=== PATIENT | female | born 1985 | race Caucasian/White ===

== ENCOUNTER 2019-06-22 18:19 | Emergency (ER) | payer OTHER ==
[~2019-06-22] VITALS: Ht 165.1 cm; Wt 127.0 kg
[2019-06-22 18:42] VITALS: BP 124/74
--- NOTE | 2019-06-22 19:15 | NUR ---
PT CAME TO ER C/O OF LOWER BACK PAIN SINCE THIS MORNING. PAIN LEVEL 8/10 SHARP SHOOTING PAIN THAT RADIATES TO BILATERAL LOWER EXTREMITIES. PER PT WHEN SHES RESTING HER BACK PAIN IS OKAY, BUT HAS TROUBLE WALKING DUE TO THE PAIN. PT DENIES TRAUMA OR INJURY. ALLERGY: ASPIRIN. MED HX: UTERINE CANCER 2015. SAFETY MEASURES IN PLACE. LICO CAIN AT BEDSIDE.
[2019-06-22] MEDS ORDERED: KETOROLAC 30 MG/ML VIAL IM ONE (19:25)
--- NOTE | 2019-06-22 19:40 | NUR ---
PT AT XRAY VIA WHEELCHAIR
[2019-06-22 20:32] VITALS: BP 124/74
--- NOTE | 2019-06-22 20:32 | NUR ---
Patient discharged with v/s stable. Written and verbal after care instructions given and explained.Educated pt to ice back or use heat and to stretch. Patient alert, oriented and verbalized understanding of instructions. Ambulatory with steady gait. All questions addressed prior to discharge. ID band removed. Patient advised to follow up with PMD. Rx of Tylenol was given. Patient educated on indication of medication including possible reaction and side effects. Opportunity to ask questions provided and answered.
== END 2019-06-22 20:32 | disposition home or self-care (01) ==
LOC: MED 18:19
DX: S39.012A Strain of muscle, fascia and tendon of lower back, initial encounter (principal); M48.061 Spinal stenosis, lumbar region without neurogenic claudication; Z85.42 Personal history of malignant neoplasm of other parts of uterus; Z98.890 Other specified postprocedural states; Z88.6 Allergy status to analgesic agent; X58.XXXA Exposure to other specified factors, initial encounter; Y92.89 Other specified places as the place of occurrence of the external cause; Y93.89 Activity, other specified; Y99.8 Other external cause status
CPT/HCPCS: 72100; 81025; 96372; 99283; J1885

== ENCOUNTER 2019-11-16 12:26 | Emergency (ER) | payer OTHER ==
[~2019-11-16] VITALS: Ht 165.1 cm; Wt 122.5 kg
[2019-11-16 12:31] VITALS: BP 131/74
--- NOTE | 2019-11-16 13:32 | NUR ---
ASSESSMENT COMPLETED AT THIS TIME. PATIENT SITTING UP IN CHAIR. NO DISTRESS NOTED. ASSESSMENT NOTE: BIB SELF REPORTED RIGHT WRIST PAIN FOR 3 DAYS. PATIENT STATES SHE DOES NOT REMEMBER ANY INJURY. FULL ROM, +CMS. REPORTS NO RESP SYMPTOMS. LUNGS CLEAR. NO GI SYMPTOMS REPORTED. NO NVD. ABD SOFT AND NON-TENDER. PATIENT AAO.
--- NOTE | 2019-11-16 14:46 | NUR ---
APPLIED WRIST BRACE TO RIGHT WRIST WITHOUT ANY ISSUES
[2019-11-16 15:06] VITALS: BP 131/74
--- NOTE | 2019-11-16 15:06 | NUR ---
Patient discharged with v/s stable. Written and verbal after care instructions given and explained. Patient alert, oriented and verbalized understanding of instructions. Ambulatory with steady gait. All questions addressed prior to discharge. ID band removed. Patient advised to follow up with PMD. Rx of BENGAY ARTHRITIS given. Patient educated on indication of medication including possible reaction and side effects. Opportunity to ask questions provided and answered.
--- NOTE | 2019-11-16 15:36 | NUR ---
Note indio in EDM - 11/16/19 at 1543 by MARK Patient discharged with v/s stable. Written and verbal after care instructions given and explained. Patient alert, oriented and verbalized understanding of instructions. Ambulatory with steady gait. All questions addressed prior to discharge. ID band removed. Patient advised to follow up with PMD. Rx of tamiflu/tylenol/motrin/claritin given. Patient educated on indication of medication including possible reaction and side effects. Opportunity to ask questions provided and answered.
== END 2019-11-16 15:06 | disposition home or self-care (01) ==
LOC: MED 12:26
DX: S63.501A Unspecified sprain of right wrist, initial encounter (principal); Z88.6 Allergy status to analgesic agent; Z85.9 Personal history of malignant neoplasm, unspecified; Z90.49 Acquired absence of other specified parts of digestive tract; X50.0XXA Overexertion from strenuous movement or load, initial encounter; Y93.89 Activity, other specified; Y92.89 Other specified places as the place of occurrence of the external cause; Y99.8 Other external cause status
CPT/HCPCS: 29260; 73110; 99283

== ENCOUNTER 2020-07-01 14:24 | Emergency (ER) | payer OTHER ==
[~2020-07-01] VITALS: Ht 165.1 cm; Wt 132.0 kg
[2020-07-01 14:26] VITALS: BP 156/96
--- NOTE | 2020-07-01 14:30 | NUR ---
PT C/O LOWER ABDOMINAL PAIN WITH CRAMPING SENSATION RADIATING TO MED LOWER BACK ACCOMPANIED HEAVY VAGIBAL BLEEDING WITH LARGE BLOOD CLOTS AND NAUSEA FOR 3 DAYS; PT STATES SHE HAD CONSISTENT VOMITING 2 DAYS AGO AND RESOVED SPONTANEOUSLY. ALSO C/O DYSURIA AND PRESSURE SENSATION WHILE VOIDING. NO CVAT BECCA. DENIES DIARRHEA; SKIN IS PINK/WARM/DRY; AAOX4 WITH EVEN AND STEADY GAIT; LUNGS CLEAR BL; HR EVEN AND REGULAR; PT DENIES ANY FEVER, CP, SOB, OR COUGH AT THIS TIME; PATIENT STATES PAIN OF 10/10 AT THIS TIME; VSS; PATIENT POSITIONED FOR COMFORT; HOB ELEVATED; BEDRAILS UP X1; BED DOWN. ER MD MADE AWARE OF PT STATUS.
--- NOTE | 2020-07-01 15:18 | NUR ---
Female Bread Dough Mixer accompanied female patient for Pelvic Exam.
[2020-07-01] MEDS ORDERED: MORPHINE SULFATE 4 MG/ML SYR IVP ONE (15:20)
[2020-07-01] MEDS ORDERED: ONDANSETRON 4 MG/2 ML VIAL IVP ONE (15:20)
[2020-07-01 15:45] LABS: BASOPHILS # (AUTO) 0.1 K/uL (0.00-0.22); BASOPHILS % (AUTO) 0.6 % (0.0-2.0); EOSINOPHILS # (AUTO) 0.1 K/uL (0-0.4); EOSINOPHILS % (AUTO) 1.3 % (0.0-4.0); HEMATOCRIT 39.8 % (36-48); HEMOGLOBIN 13.2 g/dL (12.0-16.0); LYMPHOCYTES # (AUTO) 2.5 K/uL (2.5-16.5); LYMPHOCYTES % (AUTO) 21.8 % (20.5-51.1); MEAN CORPUSCULAR HEMOGLOBIN 29 pg (27-31); MEAN CORPUSCULAR HGB CONC 33 g/dL (33-37); MEAN CORPUSCULAR VOLUME 86.7 fL (80-94); MONOCYTES # (AUTO) 0.7 K/uL (0.8-1.0); NEUTROPHILS % (AUTO) 70.3 % (42.2-75.2); PLATELET COUNT (AUTO) 413 K/uL (140-450); RED BLOOD CELL COUNT(AUTO) 4.59 MIL/uL (4.20-5.40); RED CELL DISTRIBUTION WIDTH 13.6 % (11.6-13.7); WHITE BLOOD COUNT (AUTO) 11.3 K/uL (4.8-10.8)
[2020-07-01 16:07] LABS: ALBUMIN 3.5 g/dL (3.4-5.0); CARBON DIOXIDE 24.4 mmol/L (21-32); CREATININE 0.8 mg/dL (0.6-1.3); FREE T4 (FREE THYROXINE) 1.12 ng/dL (0.76-1.46); POTASSIUM 3.4 mmol/L (3.5-5.1); THYROID STIMULATING HORMONE 0.79 uIU/mL (0.34-3.74); TOTAL BILIRUBIN 0.5 mg/dL (0.0-1.0)
[2020-07-01] MEDS ORDERED: medroxyPROGESTERone 10 MG TAB PO STA (17:42)
[2020-07-01 18:37] VITALS: BP 123/81
--- NOTE | 2020-07-01 18:37 | NUR ---
Patient discharged with v/s stable. Written and verbal after care instructions given and explained. Patient alert, oriented and verbalized understanding of instructions. Ambulatory with steady gait. All questions addressed prior to discharge. ID band removed. Patient advised to follow up with PMD. Rx of PORERA AND NAPROSYN given. Patient educated on indication of medication including possible reaction and side effects. Opportunity to ask questions provided and answered.
== END 2020-07-01 18:37 | disposition home or self-care (01) ==
LOC: MED 14:24
DX: N93.8 Other specified abnormal uterine and vaginal bleeding (principal); Z88.0 Allergy status to penicillin; Z85.9 Personal history of malignant neoplasm, unspecified
CPT/HCPCS: 36415; 76830; 80053; 81002; 81025; 84439; 84443; 85025; 85610; 85730; 86886; 86900; 86901; 96374; 96375; 99284; J2270; J2405; Q0092

== ENCOUNTER 2022-01-16 22:04 | Emergency (ER) | payer OTHER ==
[~2022-01-16] VITALS: Ht 165.1 cm; Wt 137.0 kg
[2022-01-16 22:16] VITALS: BP 148/99
--- NOTE | 2022-01-16 23:00 | NUR ---
PT C/O ANXIETY, PANIC ATTACK D/T INCREASE STRESS AT HOME.
[2022-01-16] MEDS: LORazepam 1 MG TAB PO ONE (23:14)
[2022-01-16] MEDS ORDERED: HYDR-1093 PO (23:45)
[2022-01-17 00:10] VITALS: BP 128/80
--- NOTE | 2022-01-17 00:10 | NUR ---
Patient discharged with v/s stable. Written and verbal after care instructions given and explained. Patient alert, oriented and verbalized understanding of instructions. Ambulatory with steady gait. All questions addressed prior to discharge. ID band removed. Patient advised to follow up with PMD. Rx of HYDROXYZINE given. Patient educated on indication of medication including possible reaction and side effects. Opportunity to ask questions provided and answered.
== END 2022-01-17 00:10 | disposition home or self-care (01) ==
LOC: MED 22:04
DX: F41.9 Anxiety disorder, unspecified (principal); F43.9 Reaction to severe stress, unspecified; E11.9 Type 2 diabetes mellitus without complications; I10 Essential (primary) hypertension; Z79.899 Other long term (current) drug therapy; Z88.8 Allergy status to other drugs, medicaments and biological substances
CPT/HCPCS: 81025; 99283

== ENCOUNTER 2022-09-16 08:05 | Emergency (ER) | payer OTHER ==
[~2022-09-16] VITALS: Ht 165.1 cm; Wt 131.5 kg
[~2022-09-16 08:05] MED LIST: HYDR-1093 PO
[2022-09-16 08:54] VITALS: BP 137/93
[2022-09-16] MEDS ORDERED: MUC600 PO (08:54)
[2022-09-16] MEDS ORDERED: MENT7.6L6 PO (08:54)
--- NOTE | 2022-09-16 09:00 | NUR ---
C/O HEADACHE, RUNNY NOSE, [id number], TOOK ADVIL AND DAYQUIL WITH MODERATE EFFECT ALLERGY: ASPIRIN PMH: ASTHMA, DM, HTN
--- NOTE | 2022-09-16 09:02 | NUR ---
Patient discharged with v/s stable. Written and verbal after care instructions VIRAL ILLNESS given and explained. Patient alert, oriented and verbalized understanding of instructions. Ambulatory with steady gait. All questions addressed prior to discharge. ID band removed. Patient advised to follow up with PMD. Rx of COUGH DROPS AND MUCINEX given. Patient educated on indication of medication including possible reaction and side effects. Opportunity to ask questions provided and answered.
== END 2022-09-16 09:02 | disposition home or self-care (01) ==
LOC: MED 08:05
DX: B34.9 Viral infection, unspecified (principal); Z20.822 Contact with and (suspected) exposure to COVID-19; H92.03 Otalgia, bilateral; R51.9 Headache, unspecified; R09.81 Nasal congestion; J45.909 Unspecified asthma, uncomplicated; E11.9 Type 2 diabetes mellitus without complications; I10 Essential (primary) hypertension; Z79.899 Other long term (current) drug therapy; Z88.6 Allergy status to analgesic agent
CPT/HCPCS: 99283

== ENCOUNTER 2022-09-23 05:44 | Emergency (ER) | payer OTHER ==
[~2022-09-23] VITALS: Ht 165.1 cm; Wt 132.0 kg
[~2022-09-23 05:44] MED LIST changes: +MENT7.6L6 PO; +MUC600 PO
[2022-09-23 06:00] VITALS: BP 136/89
--- NOTE | 2022-09-23 06:11 | NUR ---
PT AMBULATED TO BED #8
--- NOTE | 2022-09-23 06:14 | NUR ---
Patient being evaluated by physician at bedside.
[2022-09-23] MEDS ORDERED: TRAM-748 PO (06:20)
[2022-09-23] MEDS ORDERED: AMOX500C25 PO (06:20)
[2022-09-23] MEDS ORDERED: COROTSOL OT (06:20)
[2022-09-23 06:32] VITALS: BP 136/89
--- NOTE | 2022-09-23 06:32 | NUR ---
Patient discharged with v/s stable. Written and verbal after care instructions given and explained. Patient verbalized understanding. Ambulatory with steady gait. All questions addressed prior to discharge. Advised to follow up with PMD.
--- NOTE | 2022-09-23 06:39 | NUR ---
37YR OLD FEMALE BIB SELF C/O BECCA EAR PAIN X3DAYS. PAIN LEVEL 8/10. PT IS A&OX4. DENIES FEVER V/D. PT STATES ALSO BEING CONGESTED. RESP EVEN AND UNLABORED. HOB ELEVATED BED AT LOWEST POSITION ASA ASTHMA DM
--- NOTE | 2022-09-23 06:44 | NUR ---
The patient's care was reviewed and supervised by Leonora Campo RN.
== END 2022-09-23 06:32 | disposition home or self-care (01) ==
LOC: MED 05:44
DX: H66.93 Otitis media, unspecified, bilateral (principal); R05.9 Cough, unspecified; R09.81 Nasal congestion; I10 Essential (primary) hypertension; J45.909 Unspecified asthma, uncomplicated; E11.9 Type 2 diabetes mellitus without complications; Z79.4 Long term (current) use of insulin; Z79.899 Other long term (current) drug therapy
CPT/HCPCS: 99283

== ENCOUNTER 2022-10-03 14:44 | Emergency (ER) | payer OTHER ==
[~2022-10-03] VITALS: Ht 165.1 cm; Wt 132.0 kg
[~2022-10-03 14:44] MED LIST changes: +AMOX500C25 PO; +COROTSOL OT; +TRAM-748 PO
[2022-10-03] MEDS ORDERED: ACETAMINOPHEN 325 MG TAB PO ONE (15:10)
[2022-10-03] MEDS ORDERED: MORPHINE SULFATE 4 MG/ML SYR IM ONE (15:40)
[2022-10-03] MEDS ORDERED: ONDANSETRON 4 MG ODT PO ONE (15:40)
--- NOTE | 2022-10-03 15:54 | NUR ---
PT TO BED 8 VIA WC
--- NOTE | 2022-10-03 16:35 | NUR ---
37F BIBA from home with c/o bilateral foot pain since today. Pt reports metal object from tow truck dropped on to both feet. Pt reports constant, burning/throbbing/aching like, 9/10 pain to feet bilaterally, with pain radiating from left foot to left calf. Pt states she is unable to bear own weight, unable to ambulate due to pain. CMS and ROM intact on right foot, limited sensation and ROM to left foot upon assessment. No bruising or swelling noted.
--- NOTE | 2022-10-03 17:27 | NUR ---
Xray at bedside.
[2022-10-03] MEDS ORDERED: ACET500P13 PO (18:16)
--- NOTE | 2022-10-03 18:31 | NUR ---
stirrup and short leg posterior applied. kala wrap x 2. splint wrapped with kala wrap x 2. crutches given and pt returned safe demonstration.
[2022-10-03 18:42] VITALS: BP 131/79
--- NOTE | 2022-10-03 18:42 | NUR ---
Patient discharged with v/s stable. Written and verbal after care instructions given and explained. Patient verbalized understanding. Wheel Chair Assisted with to car. All questions addressed prior to discharge. Advised to follow up with PMD.
== END 2022-10-03 18:42 | disposition home or self-care (01) ==
LOC: MED 14:44
DX: S82.52XA Displaced fracture of medial malleolus of left tibia, initial encounter for closed fracture (principal); S99.921A Unspecified injury of right foot, initial encounter; E11.9 Type 2 diabetes mellitus without complications; J45.909 Unspecified asthma, uncomplicated; I10 Essential (primary) hypertension; Z79.4 Long term (current) use of insulin; Z79.899 Other long term (current) drug therapy; Z85.42 Personal history of malignant neoplasm of other parts of uterus; Z79.82 Long term (current) use of aspirin; X58.XXXA Exposure to other specified factors, initial encounter; Y93.89 Activity, other specified; Y92.89 Other specified places as the place of occurrence of the external cause; Y99.8 Other external cause status
CPT/HCPCS: 29515; 73610; 73630; 96372; 99284; J2270; Q0162

== ENCOUNTER 2023-10-02 15:21 | Emergency (ER) | payer OTHER ==
[~2023-10-02] VITALS: Ht 165.1 cm; Wt 127.7 kg
[~2023-10-02 15:21] MED LIST changes: +ACET500P13 PO
[2023-10-02 15:36] VITALS: BP 125/81; PULSE 76; RESP 19; TEMP 97.8; O2SAT 95
[2023-10-02 16:21] LABS: BASOPHILS # (AUTO) 0.1 K/uL (0.00-0.22); BASOPHILS % (AUTO) 0.7 % (0.0-2.0); EOSINOPHILS # (AUTO) 0.1 K/uL (0-0.4); EOSINOPHILS % (AUTO) 1.4 % (0.0-4.0); HEMATOCRIT 40.3 % (36-48); HEMOGLOBIN 13.7 g/dL (12.0-16.0); LYMPHOCYTES # (AUTO) 2.7 K/uL (2.5-16.5); LYMPHOCYTES % (AUTO) 27.1 % (20.5-51.1); MEAN CORPUSCULAR HEMOGLOBIN 29 pg (27-31); MEAN CORPUSCULAR HGB CONC 34 g/dL (33-37); MEAN CORPUSCULAR VOLUME 86.2 fL (80-94); MONOCYTES # (AUTO) 0.5 K/uL (0.8-1.0); MONOCYTES % (AUTO) 5.2 % (1.7-9.3); NEUTROPHILS # (AUTO) 6.6 K/uL (1.8-7.7); NEUTROPHILS % (AUTO) 65.6 % (42.2-75.2); PLATELET COUNT (AUTO) 420 K/uL (140-450); RED BLOOD CELL COUNT(AUTO) 4.67 MIL/uL (4.20-5.40); RED CELL DISTRIBUTION WIDTH 13.6 % (11.6-13.7)
[2023-10-02 16:39] LABS: ALBUMIN 3.9 g/dL (3.4-5.0); ANION GAP 14.2 (8-16); CALCIUM 9.1 mg/dL (8.5-10.1); CARBON DIOXIDE 28.5 mmol/L (21-32); CREATININE 0.8 mg/dL (0.6-1.3); POTASSIUM 3.7 mmol/L (3.5-5.1); TOTAL BILIRUBIN 0.6 mg/dL (0.0-1.0); TOTAL PROTEIN, SERUM 7.9 g/dL (6.4-8.2)
[2023-10-02] MEDS ORDERED: FAMOTIDINE 20 MG/2 ML VIAL IVP ONE (16:45)
[2023-10-02] MEDS ORDERED: ONDANSETRON 4 MG/2 ML VIAL IVP ONE (16:45)
[2023-10-02] MEDS ORDERED: NACL 0.9% 1,000 ML IV ONE (16:45)
[2023-10-02] MEDS ORDERED: KETOROLAC 30 MG/ML VIAL IVP ONE (16:50)
[2023-10-02 19:01] LABS: APPEARANCE,URINE CLEAR (CLEAR); BILIRUBIN,URINE NEGATIVE (NEGATIVE); BLOOD, URINE TRACE-I (NEGATIVE); COLOR,URINE YELLOW (YELLOW); LEUKOCYTE ESTERASE ,URINE NEGATIVE (NEGATIVE); NITRITE, URINE NEGATIVE (NEGATIVE); PROTEIN,URINE NEGATIVE (NEGATIVE); UGLUCOSE NEGATIVE (NEGATIVE)
[2023-10-02 19:26] LABS: BACTERIA,URINE FEW /HPF (None Seen); SQUAMOUS EPITHELIAL CELL,UR 0-3 (FEW) /LPF (0-3 (FEW)); WBC,URINE 0-5 /HPF (0-5)
[2023-10-02 19:35] VITALS: TEMP 97.9
[2023-10-02] MEDS ORDERED: LID5T TP (19:54)
[2023-10-02] MEDS ORDERED: ACET-10509 PO (19:54)
[2023-10-02] MEDS ORDERED: ONDA-188 SL (19:54)
[2023-10-02 20:10] VITALS: O2SAT 98
[2023-10-02 20:11] VITALS: BP 15/76; PULSE 76; RESP 19; O2SAT 98
== END 2023-10-02 20:11 | disposition home or self-care (01) ==
LOC: MED 15:21
DX: R11.2 Nausea with vomiting, unspecified (principal); R10.9 Unspecified abdominal pain; M54.50 Low back pain, unspecified; J45.909 Unspecified asthma, uncomplicated; E11.9 Type 2 diabetes mellitus without complications; I10 Essential (primary) hypertension; Z79.4 Long term (current) use of insulin; Z79.899 Other long term (current) drug therapy; Z79.82 Long term (current) use of aspirin
CPT/HCPCS: 36415; 74176; 80053; 81001; 81025; 83690; 84703; 85025; 96361; 96374; 96375; 99285; J1885; J2405; J3490; J7030

== ENCOUNTER 2023-10-22 16:12 | Emergency (ER) | payer OTHER ==
[~2023-10-22] VITALS: Ht 165.1 cm; Wt 129.7 kg
[~2023-10-22 16:12] MED LIST changes: +ACET-10509 PO; +LID5T TP; +ONDA-188 SL
[2023-10-22 16:27] VITALS: BP 138/79; PULSE 113; RESP 14; TEMP 100; O2SAT 94
[2023-10-22] MEDS ORDERED: ACETAMINOPHEN EXTRA STRENGTH 500 MG TAB PO ONE (16:35)
[2023-10-22] MEDS ORDERED: ONDANSETRON 4 MG ODT PO ONE (17:10)
[2023-10-22] MEDS ORDERED: ONDANSETRON 4 MG ODT ONE (17:10)
[2023-10-22 17:41] LABS: FLU B ANTIGEN NEGATIVE (NEGATIVE)
[2023-10-22 17:42] LABS: FLU A ANTIGEN POSITIVE (NEGATIVE)
[2023-10-22] MEDS ORDERED: ACET-10509 PO ×2 (17:50→18:01)
[2023-10-22] MEDS ORDERED: BPM/-9 PO ×2 (17:50→18:01)
[2023-10-22] MEDS ORDERED: TAM75 PO ×2 (17:50→18:01)
[2023-10-22] MEDS ORDERED: ONDA-188 SL ×2 (17:50→18:01)
== END 2023-10-22 18:02 | disposition home or self-care (01) ==
LOC: MED 16:12
DX: J10.1 Influenza due to other identified influenza virus with other respiratory manifestations (principal); Z20.822 Contact with and (suspected) exposure to COVID-19; J45.909 Unspecified asthma, uncomplicated; E11.9 Type 2 diabetes mellitus without complications; I10 Essential (primary) hypertension; Z79.899 Other long term (current) drug therapy; Z79.2 Long term (current) use of antibiotics; Z88.6 Allergy status to analgesic agent
CPT/HCPCS: 71045; 87426; 87804; 99284; Q0162

== ENCOUNTER 2023-10-24 10:23 | Emergency (ER) | payer OTHER ==
[~2023-10-24] VITALS: Ht 165.1 cm; Wt 128.8 kg
[~2023-10-24 10:23] MED LIST changes: +BPM/-9 PO; +TAM75 PO
[2023-10-24 10:26] VITALS: BP 138/75; PULSE 83; RESP 15; TEMP 97.6; O2SAT 99
[2023-10-24] MEDS ORDERED: ONDANSETRON 4 MG/2 ML VIAL IVP ONE (10:40)
[2023-10-24] MEDS ORDERED: NACL 0.9% 1,000 ML IV SCH (10:40)
[2023-10-24] MEDS ORDERED: KETOROLAC 30 MG/ML VIAL IVP ONE (10:40)
[2023-10-24 11:30] LABS: BASOPHILS % (AUTO) 0.4 % (0.0-2.0); EOSINOPHILS # (AUTO) 0.1 K/uL (0-0.4); EOSINOPHILS % (AUTO) 1.6 % (0.0-4.0); HEMATOCRIT 41.8 % (36-48); HEMOGLOBIN 14.6 g/dL (12.0-16.0); LYMPHOCYTES # (AUTO) 2.3 K/uL (2.5-16.5); LYMPHOCYTES % (AUTO) 50.8 % (20.5-51.1); MEAN CORPUSCULAR HEMOGLOBIN 30 pg (27-31); MEAN CORPUSCULAR HGB CONC 35 g/dL (33-37); MEAN CORPUSCULAR VOLUME 85.8 fL (80-94); MONOCYTES # (AUTO) 0.5 K/uL (0.8-1.0); MONOCYTES % (AUTO) 10.4 % (1.7-9.3); NEUTROPHILS # (AUTO) 1.7 K/uL (1.8-7.7); NEUTROPHILS % (AUTO) 36.8 % (42.2-75.2); PLATELET COUNT (AUTO) 320 K/uL (140-450); RED BLOOD CELL COUNT(AUTO) 4.87 MIL/uL (4.20-5.40); RED CELL DISTRIBUTION WIDTH 13.8 % (11.6-13.7); WHITE BLOOD COUNT (AUTO) 4.5 K/uL (4.8-10.8)
[2023-10-24 11:54] LABS: ANION GAP 14.3 (8-16); CARBON DIOXIDE 26.2 mmol/L (21-32); CREATININE 0.9 mg/dL (0.6-1.3); POTASSIUM 3.5 mmol/L (3.5-5.1)
[2023-10-24 11:58] LABS: ALBUMIN 3.4 g/dL (3.4-5.0); BILIRUBIN,DIRECT 0.1 mg/dL (0.0-0.3); TOTAL BILIRUBIN 0.6 mg/dL (0.0-1.0); TOTAL PROTEIN, SERUM 8.2 g/dL (6.4-8.2)
[2023-10-24] MEDS ORDERED: ONDA-188 PO (12:18)
== END 2023-10-24 12:36 | disposition home or self-care (01) ==
LOC: MED 10:23
DX: J10.1 Influenza due to other identified influenza virus with other respiratory manifestations (principal); R11.2 Nausea with vomiting, unspecified; J45.909 Unspecified asthma, uncomplicated; E11.9 Type 2 diabetes mellitus without complications; I10 Essential (primary) hypertension; Z79.82 Long term (current) use of aspirin; Z79.899 Other long term (current) drug therapy; Z79.4 Long term (current) use of insulin
CPT/HCPCS: 36415; 71045; 80048; 80076; 81025; 83690; 84703; 85025; 96361; 96374; 96375; 99284; J1885; J2405; J7030; Q0092

== ENCOUNTER 2024-04-10 19:57 | Emergency (ER) | payer OTHER ==
[~2024-04-10] VITALS: Ht 165.1 cm; Wt 119.3 kg
[~2024-04-10 19:57] MED LIST changes: +MENT7.6L13 PO; -MENT7.6L6 PO; +ONDA-188 PO
[2024-04-10 20:03] VITALS: BP 142/99; PULSE 61; RESP 16; TEMP 96.8; O2SAT 100
[2024-04-10] MEDS: NACL 0.9% 1,000 ML IV SCH (20:52)
[2024-04-10 20:53] LABS: BASOPHILS % (AUTO) 0.4 % (0.0-2.0); EOSINOPHILS # (AUTO) 0.2 K/uL (0-0.4); EOSINOPHILS % (AUTO) 1.6 % (0.0-4.0); HEMATOCRIT 38.6 % (36-48); HEMOGLOBIN 13.4 g/dL (12.0-16.0); LYMPHOCYTES # (AUTO) 2.3 K/uL (2.5-16.5); LYMPHOCYTES % (AUTO) 20.3 % (20.5-51.1); MEAN CORPUSCULAR HEMOGLOBIN 30 pg (27-31); MEAN CORPUSCULAR HGB CONC 35 g/dL (33-37); MEAN CORPUSCULAR VOLUME 87.2 fL (80-94); MONOCYTES # (AUTO) 0.6 K/uL (0.8-1.0); MONOCYTES % (AUTO) 5.4 % (1.7-9.3); NEUTROPHILS # (AUTO) 8.1 K/uL (1.8-7.7); NEUTROPHILS % (AUTO) 72.3 % (42.2-75.2); PLATELET COUNT (AUTO) 305 K/uL (140-450); RED BLOOD CELL COUNT(AUTO) 4.42 MIL/uL (4.20-5.40); RED CELL DISTRIBUTION WIDTH 14.9 % (11.6-13.7); WHITE BLOOD COUNT (AUTO) 11.3 K/uL (4.8-10.8)
[2024-04-10] MEDS: KETOROLAC 30 MG/ML VIAL IVP ONE (21:00)
[2024-04-10 21:01] LABS: ANION GAP 10.6 (8-16); CALCIUM 8.9 mg/dL (8.5-10.1); CARBON DIOXIDE 27.9 mmol/L (21-32); CREATININE 0.7 mg/dL (0.6-1.3); POTASSIUM 3.5 mmol/L (3.5-5.1)
[2024-04-10] MEDS: FAMOTIDINE 20 MG/2 ML VIAL IVP ONE (21:01)
[2024-04-10] MEDS: diphenhydrAMINE 50 MG/ML VIAL IVP ONE (21:01)
[2024-04-10 21:03] LABS: APPEARANCE,URINE CLEAR (CLEAR); BILIRUBIN,URINE 1+ (NEGATIVE); BLOOD, URINE TRACE-I (NEGATIVE); COLOR,URINE YELLOW (YELLOW); LEUKOCYTE ESTERASE ,URINE NEGATIVE (NEGATIVE); NITRITE, URINE NEGATIVE (NEGATIVE); PROTEIN,URINE NEGATIVE (NEGATIVE); UGLUCOSE NEGATIVE (NEGATIVE); UROBILINOGEN,URINE 0.2 EU/dL (0.2 - 1)
[2024-04-10] MEDS: METOCLOPRAMIDE 10 MG/2 ML INJ VIAL IVP ONE (21:03)
[2024-04-10 21:07] LABS: ALBUMIN 3.8 g/dL (3.4-5.0); BILIRUBIN,DIRECT 0.2 mg/dL (0.0-0.3); TOTAL PROTEIN, SERUM 7.3 g/dL (6.4-8.2)
[2024-04-10 21:09] LABS: ICTOTEST POSITIVE (NEGATIVE)
[2024-04-10 22:00] VITALS: BP 142/99; PULSE 61; RESP 16; TEMP 96.8; O2SAT 100
== END 2024-04-10 22:00 | disposition left against medical advice (07) ==
LOC: MED 19:57
DX: K35.80 Unspecified acute appendicitis (principal); J45.909 Unspecified asthma, uncomplicated; E11.9 Type 2 diabetes mellitus without complications; I10 Essential (primary) hypertension; Z79.82 Long term (current) use of aspirin; Z79.4 Long term (current) use of insulin; Z79.899 Other long term (current) drug therapy
CPT/HCPCS: 36415; 74176; 80048; 80076; 81003; 81025; 83690; 85025; 96361; 96374; 96375; 99285; J1200; J1885; J2765; J3490; J7030

== ENCOUNTER 2024-04-11 00:30 | Inpatient (IN) | payer OTHER ==
[2024-04-11] VITALS (8 sets, daily range): BP systolic 107–129; BP diastolic 67–84; PULSE 59–79; RESP 16–18; TEMP 97.1–98.1; O2SAT 95–100
[~2024-04-11] VITALS: Ht 165.1 cm; Wt 125.2 kg
[2024-04-11] MEDS ORDERED: cefTRIAXone 2,000 MG VIAL ONE (01:11)
[2024-04-11] MEDS: NACL 0.9% 1,000 ML IV ONE (01:15)
[2024-04-11] MEDS: cefTRIAXone 2,000 MG in DEXTROSE 5% 100 ML IV ONE (01:15)
[2024-04-11] MEDS: MORPHINE SULFATE 4 MG/ML SYR IVP ONE (01:33)
[2024-04-11] MEDS: ONDANSETRON 4 MG/2 ML VIAL IVP ONE (01:33)
[2024-04-11] MEDS: metroNIDAZOLE 500 MG/NS PREMIX 100 ML IV ONE (01:34)
[2024-04-11 01:37] LABS: BASOPHILS % (AUTO) 0.3 % (0.0-2.0); EOSINOPHILS # (AUTO) 0.1 K/uL (0-0.4); HEMATOCRIT 36.4 % (36-48); HEMOGLOBIN 12.6 g/dL (12.0-16.0); LYMPHOCYTES # (AUTO) 1.9 K/uL (2.5-16.5); LYMPHOCYTES % (AUTO) 18.1 % (20.5-51.1); MEAN CORPUSCULAR HEMOGLOBIN 30 pg (27-31); MEAN CORPUSCULAR HGB CONC 35 g/dL (33-37); MEAN CORPUSCULAR VOLUME 87.3 fL (80-94); MONOCYTES # (AUTO) 0.6 K/uL (0.8-1.0); NEUTROPHILS # (AUTO) 7.8 K/uL (1.8-7.7); NEUTROPHILS % (AUTO) 74.6 % (42.2-75.2); PLATELET COUNT (AUTO) 281 K/uL (140-450); RED BLOOD CELL COUNT(AUTO) 4.17 MIL/uL (4.20-5.40); RED CELL DISTRIBUTION WIDTH 14.6 % (11.6-13.7); WHITE BLOOD COUNT (AUTO) 10.4 K/uL (4.8-10.8)
[2024-04-11 01:52] LABS: INR 1.02 (0.8-1.2); PARTIAL THROMBOPLASTIN TIME 29.9 secs (22-35.6); PROTHROMBIN TIME 10.7 secs (10.8-13.4)
[2024-04-11 02:04] LABS: ANION GAP 11.9 (8-16); CALCIUM 8.8 mg/dL (8.5-10.1); CARBON DIOXIDE 25.5 mmol/L (21-32); CREATININE 0.7 mg/dL (0.6-1.3); POTASSIUM 3.4 mmol/L (3.5-5.1)
[2024-04-11] MEDS ORDERED: ACETAMINOPHEN 325 MG TAB PO PRN (04:25)
[2024-04-11] MEDS ORDERED: KCL 20 MEQ IN 100 mL PREMIX 200 ML IV PRN (04:25)
[2024-04-11] MEDS ORDERED: METOCLOPRAMIDE 10 MG/2 ML INJ VIAL IVP PRN (04:25)
[2024-04-11] MEDS ORDERED: MAGNESIUM OXIDE 400 MG TAB PO PRN (04:25)
[2024-04-11] MEDS ORDERED: MAG SULF 2000 MG/WATER PREMIX 50 ML IV PRN (04:25)
[2024-04-11] MEDS ORDERED: LORazepam 1 MG TAB PO PRN (04:25)
[2024-04-11] MEDS: DEXT 5% /NACL 0.9% 1,000 ML IV SCH (04:57)
[2024-04-11] MEDS: metroNIDAZOLE 500 MG/NS PREMIX 100 ML IV SCH (07:41)
[2024-04-11] MEDS: HYDROcodone/APAP 5/325 MG 1 TAB TAB PO PRN (08:12)
[2024-04-11] MEDS: fentaNYL citrate 0.05 MG/ML VIAL ONE (12:33)
[2024-04-11] MEDS: LIDOCAINE/EPI 1% 1:100000 20 ML VIAL INJ ONE (12:33)
[2024-04-11] MEDS: BUPIVACAINE-MPF 0.25% 30 ML VIAL INJ ONE (12:33)
[2024-04-11] MEDS: SUGAMMADEX SODIUM 200 MG/2 ML VIAL IV ONE (12:34)
[2024-04-11] MEDS: MIDAZOLAM 2 MG/2 ML VIAL ONE (12:34)
[2024-04-11] MEDS: ROCURONIUM 50 MG/5 ML VIAL IV ONE (12:49)
[2024-04-11] MEDS ORDERED: SEVOFLURANE 250 ML BTL INH ONE (14:00)
[2024-04-11] MEDS ORDERED: diphenhydrAMINE 50 MG/ML VIAL IVP PRN (14:50)
[2024-04-11] MEDS ORDERED: ONDANSETRON 4 MG/2 ML VIAL IVP PRN (14:50)
[2024-04-11] MEDS ORDERED: MEPERIDINE 25 MG/ML SYR IVP PRN (14:50)
[2024-04-11] MEDS: LACTATED RINGERS 1,000 ML IV SCH (14:50)
[2024-04-11] MEDS: MORPHINE SULFATE 4 MG/ML SYR IVP PRN (15:37)
[2024-04-11] MEDS: METOCLOPRAMIDE 10 MG/2 ML INJ VIAL ONE (15:40)
[2024-04-11] MEDS: PROPOFOL 200 MG/20 ML VIAL IV ONE (15:40)
[2024-04-11] MEDS: ONDANSETRON 4 MG/2 ML VIAL ONE (15:41)
[2024-04-11] MEDS: SUCCINYLCHOLINE CHLORIDE 200 MG/10 ML VIAL IVP ONE (15:41)
[2024-04-11] MEDS: LIDOCAINE MPF 2% 100 MG/5 ML VIAL INJ ONE (15:41)
[2024-04-11] MEDS: KETOROLAC 30 MG/ML VIAL ONE (15:41)
[2024-04-11] MEDS: HYDROmorphone 1 MG/ML AMP IVP PRN (20:29)
[2024-04-11] MEDS: ZOLPIDEM 5 MG TAB PO PRN (20:30)
[2024-04-12] VITALS (8 sets, daily range): BP systolic 111–126; BP diastolic 66–76; PULSE 58–65; RESP 16–18; TEMP 97.3–98.3; O2SAT 96–99
[2024-04-12] MEDS: cefTRIAXone 2,000 MG in DEXTROSE 5% 100 ML IV SCH (00:47)
[2024-04-12] MEDS: ONDANSETRON 4 MG/2 ML VIAL IVP PRN (03:38)
[2024-04-12 06:30] LABS: BASOPHILS % (AUTO) 0.1 % (0.0-2.0); EOSINOPHILS # (AUTO) 0.1 K/uL (0-0.4); EOSINOPHILS % (AUTO) 1.1 % (0.0-4.0); HEMATOCRIT 36.4 % (36-48); HEMOGLOBIN 12.7 g/dL (12.0-16.0); LYMPHOCYTES # (AUTO) 1.3 K/uL (2.5-16.5); LYMPHOCYTES % (AUTO) 15.2 % (20.5-51.1); MEAN CORPUSCULAR HEMOGLOBIN 31 pg (27-31); MEAN CORPUSCULAR HGB CONC 35 g/dL (33-37); MEAN CORPUSCULAR VOLUME 87.9 fL (80-94); MONOCYTES # (AUTO) 0.5 K/uL (0.8-1.0); MONOCYTES % (AUTO) 5.6 % (1.7-9.3); NEUTROPHILS # (AUTO) 6.9 K/uL (1.8-7.7); PLATELET COUNT (AUTO) 297 K/uL (140-450); RED BLOOD CELL COUNT(AUTO) 4.15 MIL/uL (4.20-5.40); RED CELL DISTRIBUTION WIDTH 14.7 % (11.6-13.7); WHITE BLOOD COUNT (AUTO) 8.8 K/uL (4.8-10.8)
[2024-04-12 06:43] LABS: ANION GAP 12.9 (8-16); CALCIUM 8.7 mg/dL (8.5-10.1); CARBON DIOXIDE 26.8 mmol/L (21-32); CREATININE 0.6 mg/dL (0.6-1.3); POTASSIUM 3.7 mmol/L (3.5-5.1)
[2024-04-12] MEDS: MEDS-TO-BEDS MC SCH (12:36)
[2024-04-12] MEDS: DOCUSATE SODIUM 100 MG GELCAP PO PRN (21:03)
[2024-04-13 04:00] VITALS: BP 115/79; PULSE 58; RESP 19; TEMP 97.3; O2SAT 97
[2024-04-13 06:44] LABS: BASOPHILS % (AUTO) 0.3 % (0.0-2.0); EOSINOPHILS # (AUTO) 0.2 K/uL (0-0.4); EOSINOPHILS % (AUTO) 2.4 % (0.0-4.0); HEMATOCRIT 36.5 % (36-48); HEMOGLOBIN 12.7 g/dL (12.0-16.0); LYMPHOCYTES # (AUTO) 2.2 K/uL (2.5-16.5); LYMPHOCYTES % (AUTO) 28.2 % (20.5-51.1); MEAN CORPUSCULAR HEMOGLOBIN 31 pg (27-31); MEAN CORPUSCULAR HGB CONC 35 g/dL (33-37); MEAN CORPUSCULAR VOLUME 87.8 fL (80-94); MONOCYTES # (AUTO) 0.5 K/uL (0.8-1.0); MONOCYTES % (AUTO) 5.8 % (1.7-9.3); NEUTROPHILS % (AUTO) 63.3 % (42.2-75.2); PLATELET COUNT (AUTO) 289 K/uL (140-450); RED BLOOD CELL COUNT(AUTO) 4.16 MIL/uL (4.20-5.40); WHITE BLOOD COUNT (AUTO) 7.9 K/uL (4.8-10.8)
[2024-04-13 07:00] LABS: ANION GAP 11.3 (8-16); CALCIUM 8.7 mg/dL (8.5-10.1); CARBON DIOXIDE 27.8 mmol/L (21-32); CREATININE 0.7 mg/dL (0.6-1.3); POTASSIUM 3.1 mmol/L (3.5-5.1)
[2024-04-13 08:00] VITALS: BP 129/82; PULSE 57; TEMP 98.2; O2SAT 96
[2024-04-13] MEDS: POTASSIUM CHLORIDE 10 MEQ TABER PO PRN (08:09)
[2024-04-13] MEDS ORDERED: ACET-9525 PO (14:47)
[2024-04-13] MEDS ORDERED: ONDA-188 PO ×2 (14:47→15:34)
[2024-04-13 14:54] VITALS: BP 129/82; PULSE 57; RESP 18; TEMP 98.2
[2024-04-13] MEDS ORDERED: ACET-8905 PO (15:32)
== END 2024-04-13 15:30 | disposition home or self-care (01) | DRG 234 ==
LOC: MED 00:30 → MTU 04:27
PROVIDERS: ADMIT Hospitalist; ATTEND Hospitalist
PROC: 0DTJ4ZZ Resection of Appendix, Percutaneous Endoscopic Approach (ICD-10-PCS; principal; 2024-04-11 12:00)
DX: K35.80 Unspecified acute appendicitis (principal); E66.01 Morbid (severe) obesity due to excess calories; Z68.42 Body mass index [BMI] 45.0-49.9, adult; Z79.899 Other long term (current) drug therapy
CPT/HCPCS: 36415; 71045; 80048; 83735; 85025; 85610; 85730; 86886; 86900; 86901; 87040; 87081; 88304; 93005; 96374; 96375; 99285; J0330; J0696; J1170; J1885; J2001; J2250; J2270; J2405; J2704; J2765; J3010; J3490; J7030; J7060; J7120; Q0092

== ENCOUNTER 2024-04-28 21:55 | Emergency (ER) | payer OTHER ==
[~2024-04-28] VITALS: Ht 165.1 cm; Wt 68.9 kg
[~2024-04-28 21:55] MED LIST changes: -ACET-10509 PO; +ACET-8905 PO; -ACET500P13 PO; -AMOX500C25 PO; -BPM/-9 PO; -COROTSOL OT; -HYDR-1093 PO; -LID5T TP; -MENT7.6L13 PO; -MUC600 PO; -ONDA-188 SL; -TAM75 PO; -TRAM-748 PO
[2024-04-28 22:05] VITALS: BP 125/89; PULSE 72; RESP 17; TEMP 98.1; O2SAT 97
[2024-04-28 22:29] VITALS: BP 125/89; PULSE 72; RESP 17; TEMP 98.1
[2024-04-28 22:41] VITALS: O2SAT 97
[2024-04-28] MEDS ORDERED: MORPHINE SULFATE 4 MG/ML SYR IVP ONE (22:50)
[2024-04-28 23:00] VITALS: O2SAT 97
[2024-04-28] MEDS: ONDANSETRON 4 MG ODT PO ONE (23:00)
[2024-04-28] MEDS: AMOXIL/CLAVULANATE 875/125 MG 1 TAB PO ONE (23:00)
[2024-04-28] MEDS: metroNIDAZOLE 250 MG TAB PO ONE (23:00)
[2024-04-28] MEDS: MORPHINE SULFATE 4 MG/ML SYR IM ONE (23:29)
[2024-04-28] MEDS ORDERED: METR-435 PO (23:32)
[2024-04-28] MEDS ORDERED: ACET-8905 PO (23:32)
[2024-04-28] MEDS ORDERED: AMOX-999 PO (23:32)
[2024-04-29] MEDS: LIDOCAINE/PRILOCAINE 2.5% 5 GM TUBE TP ONE (00:05)
== END 2024-04-29 01:30 | disposition home or self-care (01) ==
LOC: MED 21:55
DX: T81.49XA Infection following a procedure, other surgical site, initial encounter (principal); Z98.890 Other specified postprocedural states; Z90.49 Acquired absence of other specified parts of digestive tract; Z79.1 Long term (current) use of non-steroidal anti-inflammatories (NSAID); Z79.899 Other long term (current) drug therapy; Z79.2 Long term (current) use of antibiotics; Z88.8 Allergy status to other drugs, medicaments and biological substances
CPT/HCPCS: 96372; 99284; J2270; Q0162; 96374

== ENCOUNTER 2024-05-16 06:45 | Emergency (ER) | payer OTHER ==
[~2024-05-16] VITALS: Ht 165.1 cm; Wt 111.1 kg
[~2024-05-16 06:45] MED LIST changes: +AMOX-999 PO; +METR-435 PO
[2024-05-16 06:47] VITALS: BP 122/79; PULSE 72; RESP 16; TEMP 97.6; O2SAT 98
[2024-05-16 07:08] LABS: APPEARANCE,URINE CLEAR (CLEAR); BILIRUBIN,URINE NEGATIVE (NEGATIVE); BLOOD, URINE 2+ (NEGATIVE); COLOR,URINE YELLOW (YELLOW); LEUKOCYTE ESTERASE ,URINE NEGATIVE (NEGATIVE); NITRITE, URINE NEGATIVE (NEGATIVE); PROTEIN,URINE NEGATIVE (NEGATIVE); UGLUCOSE NEGATIVE (NEGATIVE); UROBILINOGEN,URINE 0.2 EU/dL (0.2 - 1)
[2024-05-16] MEDS: ONDANSETRON 4 MG ODT PO ONE (07:11)
[2024-05-16] MEDS: KETOROLAC 60 MG/2 ML VIAL IM ONE (07:11)
[2024-05-16 07:38] LABS: WBC,URINE 0-5 /HPF (0-5)
[2024-05-16 07:39] LABS: BACTERIA,URINE 1+ /HPF (None Seen); SQUAMOUS EPITHELIAL CELL,UR 4-10 (MOD) /LPF (0-3 (FEW))
[2024-05-16] MEDS ORDERED: MORPHINE SULFATE 4 MG/ML SYR IM ONE (07:40)
[2024-05-16] MEDS: NACL 0.9% 1,000 ML IV SCH (07:55)
[2024-05-16] MEDS: MORPHINE SULFATE 4 MG/ML SYR IVP ONE (07:55)
[2024-05-16 08:17] LABS: BASOPHILS % (AUTO) 0.5 % (0.0-2.0); EOSINOPHILS # (AUTO) 0.1 K/uL (0-0.4); EOSINOPHILS % (AUTO) 2.4 % (0.0-4.0); HEMATOCRIT 36.7 % (36-48); HEMOGLOBIN 12.6 g/dL (12.0-16.0); LYMPHOCYTES # (AUTO) 1.9 K/uL (2.5-16.5); LYMPHOCYTES % (AUTO) 31.8 % (20.5-51.1); MEAN CORPUSCULAR HEMOGLOBIN 30 pg (27-31); MEAN CORPUSCULAR HGB CONC 34 g/dL (33-37); MEAN CORPUSCULAR VOLUME 87.8 fL (80-94); MONOCYTES # (AUTO) 0.5 K/uL (0.8-1.0); MONOCYTES % (AUTO) 8.9 % (1.7-9.3); NEUTROPHILS # (AUTO) 3.4 K/uL (1.8-7.7); NEUTROPHILS % (AUTO) 56.4 % (42.2-75.2); PLATELET COUNT (AUTO) 303 K/uL (140-450); RED BLOOD CELL COUNT(AUTO) 4.17 MIL/uL (4.20-5.40); RED CELL DISTRIBUTION WIDTH 14.1 % (11.6-13.7)
[2024-05-16 08:32] LABS: ANION GAP 12.4 (8-16); CALCIUM 8.9 mg/dL (8.5-10.1); CARBON DIOXIDE 23.9 mmol/L (21-32); CREATININE 0.9 mg/dL (0.6-1.3); POTASSIUM 3.3 mmol/L (3.5-5.1)
[2024-05-16 08:36] LABS: ALBUMIN 3.3 g/dL (3.4-5.0); BILIRUBIN,DIRECT 0.2 mg/dL (0.0-0.3); TOTAL BILIRUBIN 0.7 mg/dL (0.0-1.0); TOTAL PROTEIN, SERUM 6.9 g/dL (6.4-8.2)
[2024-05-16] MEDS ORDERED: IBUP-2213 PO (09:01)
[2024-05-16] MEDS ORDERED: TAMS0.4C96 PO (09:01)
[2024-05-16] MEDS ORDERED: ACET-8905 PO (09:01)
[2024-05-16 09:20] VITALS: BP 125/82; PULSE 66; RESP 16; TEMP 97.6; O2SAT 99
== END 2024-05-16 09:20 | disposition home or self-care (01) ==
LOC: MED 06:45
DX: N20.0 Calculus of kidney (principal); Z90.49 Acquired absence of other specified parts of digestive tract; Z98.890 Other specified postprocedural states; Z79.899 Other long term (current) drug therapy; Z88.6 Allergy status to analgesic agent
CPT/HCPCS: 36415; 74176; 80048; 80076; 81001; 81025; 83690; 85025; 96361; 96372; 96374; 99285; J1885; J2270; J7030; Q0162